=== PATIENT | female | born 1995 | race African-American/Black ===

== ENCOUNTER 2022-08-22 22:57 | Emergency (ER) | payer BC, OTHER ==
[~2022-08-22] VITALS: Ht 170.2 cm; Wt 105.2 kg
[2022-08-22 23:04] VITALS: O2SAT 100
== END 2022-08-23 | disposition home or self-care (01) ==
LOC: ER 23:01
DX: S93.492A Sprain of other ligament of left ankle, initial encounter (principal); W01.0XXA Fall on same level from slipping, tripping and stumbling without subsequent striking against object, initial encounter; Y93.01 Activity, walking, marching and hiking; Y92.89 Other specified places as the place of occurrence of the external cause
CPT/HCPCS: 99283